=== PATIENT | female | born 1975 | race Caucasian/White ===

== ENCOUNTER 2024-01-08 21:51 | Emergency (ER) | payer OTHER ==
[~2024-01-08] VITALS: Ht 157.5 cm; Wt 81.6 kg
[2024-01-08] MEDS: TDAP DIPH,PERTUSS,TET VAC/PF 0.5 ML DISP.SYRIN IM ONE (22:15)
[2024-01-08] MEDS ORDERED: TDAP DIPH,PERTUSS,TET VAC/PF 0.5 ML DISP.SYRIN IM ONE (23:21)
[2024-01-09] MEDS ORDERED: DOXY100T2 PO (00:06)
[2024-01-09 00:12] VITALS: BP 132/79; TEMP 98.6; O2SAT 99
== END 2024-01-09 00:15 | disposition home or self-care (01) ==
LOC: ER 21:56
DX: L84 Corns and callosities (principal); R21 Rash and other nonspecific skin eruption; Z98.890 Other specified postprocedural states; Z79.899 Other long term (current) drug therapy
CPT/HCPCS: 90715; A4606; A4663